=== PATIENT | male | born 1990 | race Caucasian/White ===

== ENCOUNTER → 2018-12-05 | Outpatient (CLI) | payer BC ==
--- NOTE | 2018-12-05 15:39 | US ---
EXAMINATION TYPE: US scrotum with doppler. Grayscale and color Doppler Duplex imaging performed of t he scrotum. DATE OF EXAM: 12/05/2018 COMPARISON: NONE CLINICAL HISTORY: N50.819 Pain in testicle. pain and swelling in right testicle EXAM MEASUREMENTS: TESTICLES: Right Testicle: 4.0 x 3.6 x 2.9 cm Left Testicle: 4.6 x 2.4 x 2.5 cm EPIDIDYMIS HEAD: Right Epididymis: 1.5 cm, very prominent in appearance with increased vascularity Left Epididymis: 0.9 cm Doppler performed to assess for testicular vascularity; good bilateral color flow and waveforms are s een. There is no evidence of testicular torsion. Presence of hydroceles: moderate on the right and mild on the left Presence of varicoceles: no IMPRESSION: 1. Findings felt to reflect right-sided epididymitis. Hydrocele as noted.
== END | disposition home or self-care (01) ==
LOC: RADUSWWP 14:53
PROVIDERS: ATTEND Family Medicine
DX: N43.3 Hydrocele, unspecified (principal); N50.819 Testicular pain, unspecified
CPT/HCPCS: 76870; 93975

== ENCOUNTER 2018-12-10 15:25 | Emergency (ER) | payer BC ==
[2018-12-10 15:30] VITALS: TEMP 98.3
[2018-12-10] MEDS ORDERED: DOXYCYCLINE 100 MG CAP PO STA (15:52)
[2018-12-10] MEDS ORDERED: cefTRIAXone 250 MG VIAL IM STA (15:52)
[2018-12-10] MEDS ORDERED: AZITHROMYCIN 500 MG TAB PO STA (15:55)
[2018-12-10 16:14] LABS: Appearance,Urine Clear (Clear); Bilirubin,Urine Negative (Negative); Blood,Urine Negative (Negative); Color,Urine Yellow; Glucose,Urine (UA) Negative (Negative); Ketones,Urine Negative (Negative); Leukocyte Esterase,Urine Negative (Negative); Nitrite,Urine Negative (Negative); PH, Urine 5.5 (5.0-8.0); Protein,Urine Trace (Negative); Specific Gravity,Urine 1.029 (1.001-1.035)
--- NOTE | 2018-12-10 16:18 | ED ---
Male Urogenital HPI - General Chief complaint: Urogenital Stated complaint: Male Time Seen by Provider: 12/10/18 15:40 Source: patient Mode of arrival: ambulatory Limitations: no limitations - History of Present Illness Initial comments: 28-year-old male who denies past medical history presenting today for chief complaint of right-sided testicular pain and swelling. Patient states this has been ongoing for the past week. He states the swelling has increased since the initial onset. Patient states the onset was gradual, he denies any color change of the testes, urethral discharge, fever or chills, dysuria, urgency, frequency, nausea, vomiting. Patient denies history of hernia. Patient states at times it radiates towards the abdomen. Patient was seen by his primary care provider who ordered outpatient ultrasound that was performed on 06/04/2019. Patient states he is unsure of the results he has not received a follow-up call. Patient states he was treated with doxycycline however he recently began developing a rash is concerned this is associated with the medication. Patient denies any changes in the character sick of the pain. He states as a dull ache that increases with ambulation. Remainder of review of systems negative, patient denies any recent shortness of breath, chest pain, back pain, numbness or tingling, dysuria or hematuria, constipation or diarrhea, headaches or visual changes, or any other complaints. Upon arrival pt does not appear in acute distress. - Related Data Home Medications Medication Instructions Recorded Confirmed Doxycycline Hyclate [Vibramycin] 100 mg PO BID 12/10/18 12/10/18 Allergies Allergy/AdvReac Type Severity Reaction Status Date / Time tetanus and diphtheria Allergy Unknown Verified 12/10/18 16:16 toxoids Childhood [tetanus & diphtheria toxoids] Review of Systems ROS Statement: Those systems with pertinent positive or pertinent negative responses have been documented in the HPI. ROS Other: All systems not noted in ROS Statement are negative. Past Medical History Past Medical History: No Reported History History of Any Multi-Drug Resistant Organisms: None Reported Additional Past Surgical History / Comment(s): facial surgery Past Psychological History: No Psychological Hx Reported Smoking Status: Current every day smoker Past Alcohol Use History: Occasional Past Drug Use History: None Reported General Exam - General Exam Comments Initial Comments: General: The patient is awake and alert, in no distress, and does not appear acutely ill. Eye: +3 mm pupils are equal, round and reactive to light, extra-ocular movements are intact. No nystagmus. There is normal conjunctiva bilaterally. No signs of icterus. Ears, nose, mouth and throat: There are moist mucous membranes and no oral lesions. Neck: The neck is supple, there is no tenderness or JVD. Cardiovascular: There is a regular rate and rhythm. No murmur, rub or gallop is appreciated. Respiratory: Lungs are clear to auscultation, respirations are non-labored, breath sounds are equal. No wheezes, stridor, rales, or rhonchi. Gastrointestinal: Soft, non-distended, non-tender abdomen without masses or organomegaly noted. There is no rebound or guarding present. No CVA tenderness. Bowel sounds are unremarkable. Musculoskeletal: Normal ROM, no tenderness. Strength 5/5. Sensation intact. Radial and femorla pulses equal bilaterally 2+. Testicular lie vertical, testicular enlargement R>L. No palpable inguinal hernia. No palpable femoral hernia. Color pink. Tenderness to palpation of the epididymis of the right teste. Cremasteric reflex intact b/l. Neurological: A&O x 3. CN II-XII intact, There are no obvious motor or sensory deficits. Coordination appears grossly intact. Speech is normal. Skin: Skin is warm and dry and no rashes or lesions are noted. Psychiatric: Cooperative, appropriate mood & affect, normal judgment. Limitations: no limitations Course Vital Signs 12/10/18 12/10/18 15:27 17:10 Temperature 98.3 F Pulse Rate 80 82 Respiratory 16 18 Rate Blood Pressure 142/69 141/87 O2 Sat by Pulse 98 99 Oximetry Medical Decision Making - Medical Decision Making Patient had outpatient ultrasound revealing epididymitis of the right testicle as well as hydrocele. Patient has no change limping since onset. physical exam findings concerning for torsion. Physical exam findings consistent with epididymitis. Patient treated with ceftriaxone and azithromycin. Patient states he has had ALLERGIC reaction to doxycycline. At this time do feel patient is stable for discharge with urology follow-up. Patient is agreeable plan discharge. I did discuss symptomatic treatment for hydrocele and epididymitis. Patient verbalizes understanding. Patient discharged stable condition this was discussed with attending provider - Lab Data Lab Results 12/10/18 Range/Units 15:59 Urine Color Yellow Urine Appearance Clear (Clear) Urine pH 5.5 (5.0-8.0) Ur Specific [place] 1.029 (1.001-1.035) Urine Protein Trace H (Negative) Urine Glucose (UA) Negative (Negative) Urine Ketones Negative (Negative) Urine Blood Negative (Negative) Urine Nitrite Negative (Negative) Urine Bilirubin Negative (Negative) Urine Urobilinogen 2.0 (<2.0) mg/dL Ur Leukocyte Esterase Negative (Negative) Disposition Clinical Impression: Epididymitis, Hydrocele Disposition: HOME SELF-CARE Condition: Good Instructions (If sedation given, give patient instructions): Epididymitis (ED) , Hydrocele (ED) Additional Instructions: Please use medication as discussed. Please follow-up with family doctor in the next 2 days, please follow-up with urology in next week. Please return to emergency room if the symptoms increase or worsen or for any other concerns. Is patient prescribed a controlled substance at d/c from ED?: No Referrals: José Luis Mayfield MD [Primary Care Provider] - 1-2 days Davide Ross MD [STAFF PHYSICIAN] - 1-2 days Time of Disposition: 16:58
[2018-12-10 17:12] VITALS: BP 141/87; PULSE 82; RESP 18
[2018-12-11 12:25] LABS: N. gonorrhoeae,PCR Negative (Neg,Equiv); Neisseria Source Urine
[2018-12-11 12:26] LABS: C. trachomatis,PCR Positive (Neg,Equiv); Chlamydia trachomatis Source Urine
== END 2018-12-10 17:10 | disposition home or self-care (01) ==
LOC: EC 15:25
DX: N45.1 Epididymitis (principal); N43.3 Hydrocele, unspecified; F17.200 Nicotine dependence, unspecified, uncomplicated; Z88.7 Allergy status to serum and vaccine
CPT/HCPCS: 81003; 87491; 87591; 99284; 96372; J0696